=== PATIENT | female | born 1990 | race Two or more races ===

== ENCOUNTER 2019-01-14 16:13 | Outpatient (CLI) | payer OTHER | END 2019-01-14 16:31 | disposition home or self-care (01) | LOC: LAB 16:13 | DX: J11.1 Influenza due to unidentified influenza virus with other respiratory manifestations (principal); R50.9 Fever, unspecified; A49.3 Mycoplasma infection, unspecified site ==

== ENCOUNTER 2020-04-07 08:31 | Outpatient (CLI) | payer OTHER | END 2020-04-07 08:42 | disposition home or self-care (01) | LOC: RX STUDY 08:31 | PROVIDERS: ATTEND Obstetrics & Gynecology | DX: Q51.828 Other congenital malformations of cervix (principal) ==

== ENCOUNTER 2021-10-30 16:05 | Emergency (ER) | payer OTHER ==
[~2021-10-30] VITALS: Ht 152.4 cm; Wt 78.5 kg
== END 2021-10-30 21:19 | disposition home or self-care (01) ==
LOC: ER 16:05
DX: O20.9 Hemorrhage in early pregnancy, unspecified (principal); Z3A.09 9 weeks gestation of pregnancy

== ENCOUNTER 2021-11-02 11:01 | Emergency (ER) | payer OTHER ==
[~2021-11-02] VITALS: Ht 152.4 cm; Wt 77.6 kg
[2021-11-02] MEDS ORDERED: NAPROXEN SODIU550 MG PO (19:52)
[2021-11-02] MEDS ORDERED: ZOFRAN8 MG PO (19:52)
== END 2021-11-02 19:56 | disposition home or self-care (01) ==
LOC: ER 11:01
DX: R11.10 Vomiting, unspecified (principal); E86.0 Dehydration; Z88.8 Allergy status to other drugs, medicaments and biological substances; O90.89 Other complications of the puerperium, not elsewhere classified

== ENCOUNTER 2022-10-14 18:18 | Emergency (ER) | payer OTHER ==
[~2022-10-14] VITALS: Ht 152.4 cm; Wt 77.6 kg
[~2022-10-14 18:18] MED LIST: NAPROXEN SODIU550 MG PO; ZOFRAN8 MG PO
[2022-10-14] MEDS ORDERED: PROMETRIUM200 MG (18:27)
[2022-10-14] MEDS ORDERED: PRENATAL + DHA1 EAC1 (18:27)
== END 2022-10-14 23:20 | disposition home or self-care (01) ==
LOC: ER 18:18
DX: O20.9 Hemorrhage in early pregnancy, unspecified (principal); Z3A.01 Less than 8 weeks gestation of pregnancy; Z88.8 Allergy status to other drugs, medicaments and biological substances

== ENCOUNTER 2022-10-16 15:34 | Emergency (ER) | payer OTHER ==
[~2022-10-16] VITALS: Ht 160 cm; Wt 65.8 kg
[~2022-10-16 15:34] MED LIST changes: +PRENATAL + DHA1 EAC1; +PROMETRIUM200 MG
== END 2022-10-16 19:49 | disposition home or self-care (01) ==
LOC: ER 15:34
DX: O34.60 Maternal care for abnormality of vagina, unspecified trimester (principal)

== ENCOUNTER 2025-01-16 09:16 | Outpatient (CLI) | payer OTHER ==
[2025-01-16 10:49] LABS: PH,URINE 6.5 (5.0-8.0); URINE APPEARANCE Clear; URINE BILIRRUBIN Negative (NEGATIVE); URINE BLOOD Negative; URINE COLOR Yellow; URINE GLUCOSE Negative (NEGATIVE); URINE KETONE 15 (NEGATIVE); URINE LEUKOCYTE Negative; URINE NITRATE Negative; URINE PROTEIN Negative (NEGATIVE)
[2025-01-16 10:51] LABS: URINE EPITHELIAL CELLS 25.1 uL (0.0-38.8); URINE WBC 18.1 uL (0.0-23.2)
[2025-01-16 10:52] LABS: BASO % 0.2 % (0.1-1.2); EOS # 0.09 (0.04-0.54); EOS % 1.4 % (0.7-7.0); HEMATOCRIT 35.4 % (34.1-44.9); HEMOGLOBIN 12.1 g/dL (11.2-15.7); LYMPH # 1.91 (1.18-3.74); LYMPH % 29.6 % (19.3-53.1); MEAN CORPUSCULAR HEMOGLOBIN 28.4 pg (25.6-32.2); MONO # 0.45 (0.24-0.82); NEUT # 3.98 (1.56-6.13); NEUT % 61.5 % (34.0-71.1); PLATELET COUNT 310 K/uL (163-369); RED BLOOD COUNT 4.26 M/uL (3.93-5.22); RED CELL DISTRIBUTION WIDTH 13.1 % (11.6-14.4)
[2025-01-16 11:00] LABS: URINE CAST 0.29 uL (0.0-1.40)
[2025-01-16 11:40] LABS: ALBUMIN 3.5 gm/dL (3.4-5.0); BILIRUBIN TOTAL 0.32 mg/dL (0.3-1.2); CALCIUM 9.8 mg/dL (8.5-10.1); CREATININE SERUM 0.42 mg/dL (0.55-1.02); GFR 172.71; GLOBULINA 3.9 G/DL (2.4-3.5); POTASSIUM 3.94 mEq/L (3.5-5.1); T4 FREE 1.09 NG/ML (0.76-1.46); TOTAL PROTEIN 7.4 gm/dL (6.4-8.2); TSH 1.47 uIU/mL (0.358-3.74)
[2025-01-16 13:38] LABS: RH POSITIVE
[2025-01-18 09:07] LABS: RAPID PLASMA REAGIN NONREACTIVE BY RPR (NONREACTIVE)
== END 2025-01-16 09:26 | disposition home or self-care (01) ==
LOC: LAB 09:16
PROVIDERS: ATTEND Obstetrics & Gynecology
DX: D64.9 Anemia, unspecified (principal); R10.9 Unspecified abdominal pain; N39.0 Urinary tract infection, site not specified; B18.8 Other chronic viral hepatitis; B18.9 Chronic viral hepatitis, unspecified; B17.8 Other specified acute viral hepatitis; A53.9 Syphilis, unspecified; R73.09 Other abnormal glucose; E03.9 Hypothyroidism, unspecified; A74.9 Chlamydial infection, unspecified; Z34.91 Encounter for supervision of normal pregnancy, unspecified, first trimester

== ENCOUNTER 2025-01-30 08:33 | Outpatient (CLI) | payer OTHER ==
[2025-01-30 10:06] LABS: URINE APPEARANCE Cloudy; URINE BILIRRUBIN Negative (NEGATIVE); URINE BLOOD Negative; URINE COLOR Yellow; URINE GLUCOSE Negative (NEGATIVE); URINE KETONE 15 (NEGATIVE); URINE LEUKOCYTE Trace; URINE NITRATE Negative; URINE PROTEIN Trace (NEGATIVE)
[2025-01-30 10:07] LABS: URINE BACTERIA 4016.8 uL (0.0-1933); URINE RBC 6.1 uL (0.0-20.8)
[2025-01-30 10:09] LABS: URINE CAST 0.58 uL (0.0-1.40)
== END 2025-01-30 08:38 | disposition home or self-care (01) ==
LOC: LAB 08:33
PROVIDERS: ATTEND Obstetrics & Gynecology
DX: Z34.92 Encounter for supervision of normal pregnancy, unspecified, second trimester (principal); N39.0 Urinary tract infection, site not specified

== ENCOUNTER 2025-04-17 09:25 | Outpatient (CLI) | payer OTHER ==
[2025-04-17 10:41] LABS: BASO % 0.3 % (0.1-1.2); EOS # 0.06 (0.04-0.54); EOS % 1.0 % (0.7-7.0); LYMPH # 1.35 (1.18-3.74); LYMPH % 22.7 % (19.3-53.1); MEAN PLATELET VOLUME 10.40 fl (9.4-12.4); MONO # 0.46 (0.24-0.82); MONO % 7.7 % (4.7-12.5); NEUT # 4.02 (1.56-6.13); NEUT % 67.8 % (34.0-71.1); RED CELL DISTRIBUTION WIDTH 13.6 % (11.6-14.4)
[2025-04-17 10:48] LABS: URINE APPEARANCE Clear; URINE BILIRRUBIN Negative (NEGATIVE); URINE BLOOD Negative; URINE COLOR Yellow; URINE GLUCOSE Negative (NEGATIVE); URINE LEUKOCYTE Negative; URINE NITRATE Negative; URINE PROTEIN Negative (NEGATIVE); URINE UROBILINOGEN 1.0 E.U./dl
[2025-04-17 10:52] LABS: URINE BACTERIA 3785.7 uL (0.0-1933); URINE EPITHELIAL CELLS 34.3 uL (0.0-38.8); URINE RBC 6.4 uL (0.0-20.8); URINE WBC 31.3 uL (0.0-23.2)
[2025-04-17 11:30] LABS: URINE CAST 0.14 uL (0.0-1.40); URINE KETONE 80 (NEGATIVE)
[2025-04-17 11:32] LABS: URINE CRYSTALS FEW /HPF; URINE YEAST NEGATIVE /hpf
== END 2025-04-17 09:29 | disposition home or self-care (01) ==
LOC: LAB 09:25
PROVIDERS: ATTEND Obstetrics & Gynecology
DX: Z34.82 Encounter for supervision of other normal pregnancy, second trimester (principal)

== ENCOUNTER → 2025-06-03 07:13 | Outpatient (CLI) | payer OTHER ==
[2025-06-03 08:06] LABS: URINE APPEARANCE Clear; URINE BILIRRUBIN Negative (NEGATIVE); URINE BLOOD Negative; URINE COLOR Yellow; URINE GLUCOSE Negative (NEGATIVE); URINE LEUKOCYTE Negative; URINE NITRATE Negative; URINE PROTEIN Negative (NEGATIVE); URINE UROBILINOGEN 1.0 E.U./dl
[2025-06-03 08:11] LABS: URINE BACTERIA 1288.5 uL (0.0-1933); URINE EPITHELIAL CELLS 21.0 uL (0.0-38.8); URINE RBC 2.4 uL (0.0-20.8); URINE WBC 12.7 uL (0.0-23.2)
[2025-06-03 08:26] LABS: BASO % 0.2 % (0.1-1.2); EOS # 0.07 (0.04-0.54); EOS % 1.3 % (0.7-7.0); LYMPH # 1.33 (1.18-3.74); LYMPH % 23.9 % (19.3-53.1); MEAN PLATELET VOLUME 10.40 fl (9.4-12.4); MONO # 0.31 (0.24-0.82); MONO % 5.6 % (4.7-12.5); NEUT # 3.80 (1.56-6.13); NEUT % 68.3 % (34.0-71.1); RED CELL DISTRIBUTION WIDTH 13.6 % (11.6-14.4)
[2025-06-03 08:47] LABS: URINE CAST 0.14 uL (0.0-1.40); URINE KETONE 80 (NEGATIVE)
== END | disposition home or self-care (01) ==
LOC: LAB 07:13
PROVIDERS: ATTEND Obstetrics & Gynecology
DX: Z34.93 Encounter for supervision of normal pregnancy, unspecified, third trimester (principal)